=== PATIENT | male | born 1975 | race Caucasian/White ===

== ENCOUNTER 2018-12-25 11:36 | Emergency (ER) | payer OTHER ==
[~2018-12-25] VITALS: Ht 182.9 cm; Wt 102.1 kg
[2018-12-25] MEDS ORDERED: Keflex500 MG PO (12:38)
[2018-12-25] MEDS ORDERED: ERYT1OIN RIGHTEYE (12:38)
== END 2018-12-25 12:50 | disposition home or self-care (01) ==
LOC: ER 11:36
DX: H10.9 Unspecified conjunctivitis (principal); F17.200 Nicotine dependence, unspecified, uncomplicated
CPT/HCPCS: 99282

== ENCOUNTER 2018-12-27 09:49 | Emergency (ER) | payer OTHER ==
[~2018-12-27] VITALS: Ht 182.9 cm; Wt 104.3 kg
[~2018-12-27 09:49] MED LIST: ERYT1OIN RIGHTEYE; Keflex500 MG PO
[2018-12-27] MEDS ORDERED: Norco 10-325 T1 EACH PO (11:17)
[2018-12-27] MEDS ORDERED: IBUP600 PO (11:17)
== END 2018-12-27 11:35 | disposition home or self-care (01) ==
LOC: ER 09:49
DX: S22.31XA Fracture of one rib, right side, initial encounter for closed fracture (principal); F10.10 Alcohol abuse, uncomplicated; F12.10 Cannabis abuse, uncomplicated; S40.811A Abrasion of right upper arm, initial encounter; W18.30XA Fall on same level, unspecified, initial encounter; F17.200 Nicotine dependence, unspecified, uncomplicated
CPT/HCPCS: 71101; 99283-25